=== PATIENT | male | born 1970 | race Caucasian/White ===

== ENCOUNTER 2016-05-14 06:25 | Emergency (ER) | payer BC ==
[~2016-05-14] VITALS: Ht 167.6 cm; Wt 70.3 kg
[~2016-05-14 06:25] MED LIST: LORTAB 5/500 501 TAB PO; ZITHROMAX TRI-500 MG PO
[2016-05-14 06:48] LABS: HEMOGLOBIN 17.6 g/dL (14.1-18.0); LYMPH # 1.5 K/mm3 (0.7-4.5); LYMPH % 27.6 % (10-50)
--- NOTE | 2016-05-14 06:54 | Emergency Room Report ---
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 N Clinical Suspician of Infection? N Mental Status: 1 - Regular (Normal Baseline) Sepsis Risk:Low Sepsis Risk Have you (or family members/close friends) recently traveled outside the [place]? N If Yes, where/when: Have you had exposure to infectious disease within the past month? N TB? Other? 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 No Hyperlipidemia? No CHF? No COPD? No Asthma? No CVA? No Seizures? No Diabetes? No GB Disease: No MRSA? No TB? No Cancer? No Immunization Hx Ped.Immunizations UTD No DT/Tetanus UNKNOWN Surgical Hx Previous Surgery?Y Colon Procedures Social History Smoking Hx Smoker: Current Every Day Smoker Tobacco: Yes Type Cigarettes Packs/day < 1 Pack Alcohol Alcohol: No Drugs none Review of Systems All Other Systems Reviewed and Negative Constitutional denies fever Eyes denies drainage ENT denies: ear pain, epistaxis, throat pain. Respiratory denies cough, denies shortness of breath, denies wheezing Cardiovascular denies chest pain, denies palpitations, denies syncope Gastrointestinal see HPI, abdominal pain, denies diarrhea, nausea, vomiting Genitourinary denies: dysuria, frequency, hesitancy. Musculoskeletal denies back pain, denies joint pain, denies joint swelling, denies neck pain Skin denies rash Psychiatric/Neurological denies headache, denies seizure Physical Exam Vital Signs Vital Signs Date Time Temp Pulse Resp B/P Pulse O2 O2 Flow FiO2 Ox Delivery Rate 05/14 0808 64 20 92 05/14 0729 71 20 137/88 93 05/14 0706 20 05/14 0646 98.2 76 20 158/101 98 - WBC >12,000 or <4,000 or 10% bands? 2 or more SIRS Criteria Met? B/P:137/88 MAP:120 Creatinine >2.0? UA output<0.5ml/kg/hr for 2 hrs? Platelet count >100,000? Lactate >2.0mmol/1? INR >1.2 or PTT > than 60 sec? Evidence of Organ Dysfunction? Provider documented clinical suspician of infection? N Sepsis Criteria Count: 1 Sepsis Risk: Low Sepsis Risk General Appearance no apparent distress Eye Exam - bilateral eye PERRL, bilateral eye EOMI Ear, Nose, Throat normal ENT inspection Neck supple Respiratory Status No: respiratory distress. Lung Sounds bilateral: lungs clear. 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 No Results/Orders Laboratory Tests 05/14/16 0645: Sodium 141, Potassium 4.2, Chloride 104, Carbon Dioxide 29, BUN 14, Creatinine 1.0, Estimated Creat Clear 91, Estimated GFR (MDRD) 80, Glucose 122 H, Calcium 8.9, Total Bilirubin 0.7, AST 81 H, ALT 62, Alkaline Phosphatase 84, Total Protein 7.8, Albumin 3.9, Globulin 3.9 H, Albumin/Globulin Ratio 1.0 L, Amylase 46, Lipase 130, WBC 5.5, RBC 5.47, Hgb 17.6, Hct 53.1 H, MCV 97.1, RDW 13.0, Plt Count 132 L, MPV 6.1 L, Gran % 63.0, Gran # 3.5, Lymphocytes % 27.6, Monocytes % 7.5, Eosinophils % 1.3, Basophils % 0.5, Lymphocytes # 1.5, Monocytes # 0.4, Eosinophils # 0.1, Basophils # 0.0, PUBS MCHC 33.2, MCH 32.2 H Current Medication Orders Sig/Mansoor Start time Last Medication Dose Route Stop Time Status Admin Ceftriaxone Sodium 1 GM ONCE ONE 05/14 814 AC Sodium Chloride 50 ML IV 05/15 843 Sodium Chloride 1,000 ML .Q1H1M 05/14 814 AC 05/14 IV 05/14 Sodium Chloride 10 ML PRN PRN 05/14 814 AC IV 05/15 801 Sodium Chloride 1,000 ML .STK-MED ONE 05/14 802 DC IV Hydromorphone HCl 0 .STK-MED ONE 05/14 702 DC .ROUTE Ondansetron HCl 0 .STK-MED ONE 05/14 702 DC .ROUTE Hydromorphone HCl 1 MG ONCE ONE 05/14 699 DC 05/14 IV 05/14 700 0706 Ondansetron HCl 4 MG ONCE ONE 05/14 699 DC 05/14 IV 05/14 700 0707 Orders Procedure Date/time Status DIET-NOTHING BY MOUTH 05/14 B Active CHEST(2 VIEWS-NOT PORTABLE) 05/14 0730 Active URINALYSIS/COMPLETE 05/[address] ABD/PELVIS REQ 05/14 0646 Complete LIPASE 05/14 0646 Complete CBC WITH AUTO DIFF 05/14 0646 Complete CHEM 12 PROFILE 05/14 0646 Complete AMYLASE 05/14 0646 Complete 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 of ischemic chgs XRAY/CT/US XRAY/CT/US 1 XRAY chest XR interpretation by reviewed by me Xray Results normal/NAD XRAY/CT/US 2 CT abdomen, pelvis CT interpretation by discussed w/radiologist Time results known: 0756 CT Results abnormal (see report) Departure Departure Time of Disposition 818 Disposition DC Home or Self Care(routine) Clinical Impression Primary Impression: CAP (community acquired pneumonia) Secondary Impressions: Ileus Condition STABLE Patient Instructions DI for Atypical Pneumonia Additional Instructions fluids and see pcp for follow up Discharge Counseling Counseled pt/family regarding diagnosis, test results, medications/RX, follow up needs Prescriptions Current Visit Scripts Levofloxacin (Levaquin 500MG) 500 MG PO DAILY #7 TAB PROMETHAZINE HCL (Phenergan 25MG Tab (Geq)) 25 MG PO Q6HP PRN N/V #10 TAB HYDROCODONE/ACETAMINOPHEN ([place] 5-325 Tablet) 1 TAB PO Q6HP PRN pain #7 TAB ED Critical Care Critical Care No Comments pt declined admit at 0822
--- NOTE | 2016-05-14 06:54 | Emergency Room Report ---
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 N Clinical Suspician of Infection? N Mental Status: 1 - Regular (Normal Baseline) Sepsis Risk:Low Sepsis Risk Have you (or family members/close friends) recently traveled outside the [place]? N If Yes, where/when: Have you had exposure to infectious disease within the past month? N TB? Other? 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 No Hyperlipidemia? No CHF? No COPD? No Asthma? No CVA? No Seizures? No Diabetes? No GB Disease: No MRSA? No TB? No Cancer? No Immunization Hx Ped.Immunizations UTD No DT/Tetanus UNKNOWN Surgical Hx Previous Surgery?Y Colon Procedures Social History Smoking Hx Smoker: Current Every Day Smoker Tobacco: Yes Type Cigarettes Packs/day < 1 Pack Alcohol Alcohol: No Drugs none Review of Systems All Other Systems Reviewed and Negative Constitutional denies fever Eyes denies drainage ENT denies: ear pain, epistaxis, throat pain. Respiratory denies cough, denies shortness of breath, denies wheezing Cardiovascular denies chest pain, denies palpitations, denies syncope Gastrointestinal see HPI, abdominal pain, denies diarrhea, nausea, vomiting Genitourinary denies: dysuria, frequency, hesitancy. Musculoskeletal denies back pain, denies joint pain, denies joint swelling, denies neck pain Skin denies rash Psychiatric/Neurological denies headache, denies seizure Physical Exam Vital Signs Vital Signs Date Time Temp Pulse Resp B/P Pulse O2 O2 Flow FiO2 Ox Delivery Rate 05/14 0808 64 20 92 05/14 0729 71 20 137/88 93 05/14 0706 20 05/14 0646 98.2 76 20 158/101 98 - WBC >12,000 or <4,000 or 10% bands? 2 or more SIRS Criteria Met? B/P:137/88 MAP:120 Creatinine >2.0? UA output<0.5ml/kg/hr for 2 hrs? Platelet count >100,000? Lactate >2.0mmol/1? INR >1.2 or PTT > than 60 sec? Evidence of Organ Dysfunction? Provider documented clinical suspician of infection? N Sepsis Criteria Count: 1 Sepsis Risk: Low Sepsis Risk General Appearance no apparent distress Eye Exam - bilateral eye PERRL, bilateral eye EOMI Ear, Nose, Throat normal ENT inspection Neck supple Respiratory Status No: respiratory distress. Lung Sounds bilateral: lungs clear. 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 No Results/Orders Laboratory Tests 05/14/16 0645: Sodium 141, Potassium 4.2, Chloride 104, Carbon Dioxide 29, BUN 14, Creatinine 1.0, Estimated Creat Clear 91, Estimated GFR (MDRD) 80, Glucose 122 H, Calcium 8.9, Total Bilirubin 0.7, AST 81 H, ALT 62, Alkaline Phosphatase 84, Total Protein 7.8, Albumin 3.9, Globulin 3.9 H, Albumin/Globulin Ratio 1.0 L, Amylase 46, Lipase 130, WBC 5.5, RBC 5.47, Hgb 17.6, Hct 53.1 H, MCV 97.1, RDW 13.0, Plt Count 132 L, MPV 6.1 L, Gran % 63.0, Gran # 3.5, Lymphocytes % 27.6, Monocytes % 7.5, Eosinophils % 1.3, Basophils % 0.5, Lymphocytes # 1.5, Monocytes # 0.4, Eosinophils # 0.1, Basophils # 0.0, PUBS MCHC 33.2, MCH 32.2 H Current Medication Orders Sig/Mansoor Start time Last Medication Dose Route Stop Time Status Admin Ceftriaxone Sodium 1 GM ONCE ONE 05/14 814 AC Sodium Chloride 50 ML IV 05/15 843 Sodium Chloride 1,000 ML .Q1H1M 05/14 814 AC 05/14 IV 05/14 Sodium Chloride 10 ML PRN PRN 05/14 814 AC IV 05/15 801 Sodium Chloride 1,000 ML .STK-MED ONE 05/14 802 DC IV Hydromorphone HCl 0 .STK-MED ONE 05/14 702 DC .ROUTE Ondansetron HCl 0 .STK-MED ONE 05/14 702 DC .ROUTE Hydromorphone HCl 1 MG ONCE ONE 05/14 699 DC 05/14 IV 05/14 700 0706 Ondansetron HCl 4 MG ONCE ONE 05/14 699 DC 05/14 IV 05/14 700 0707 Orders Procedure Date/time Status DIET-NOTHING BY MOUTH 05/14 B Active CHEST(2 VIEWS-NOT PORTABLE) 05/14 0730 Active URINALYSIS/COMPLETE 05/[address] ABD/PELVIS REQ 05/14 0646 Complete LIPASE 05/14 0646 Complete CBC WITH AUTO DIFF 05/14 0646 Complete CHEM 12 PROFILE 05/14 0646 Complete AMYLASE 05/14 0646 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 of ischemic chgs XRAY/CT/US XRAY/CT/US 1 XRAY chest XR interpretation by reviewed by me Xray Results normal/NAD XRAY/CT/US 2 CT abdomen, pelvis CT interpretation by discussed w/radiologist Time results known: 0756 CT Results abnormal (see report) Departure Departure Time of Disposition 818 Disposition DC Home or Self Care(routine) Clinical Impression Primary Impression: CAP (community acquired pneumonia) Secondary Impressions: Ileus Condition STABLE Patient Instructions DI for Atypical Pneumonia Additional Instructions fluids and see pcp for follow up Discharge Counseling Counseled pt/family regarding diagnosis, test results, medications/RX, follow up needs Prescriptions Current Visit Scripts Levofloxacin (Levaquin 500MG) 500 MG PO DAILY #7 TAB PROMETHAZINE HCL (Phenergan 25MG Tab (Geq)) 25 MG PO Q6HP PRN N/V #10 TAB HYDROCODONE/ACETAMINOPHEN ([place] 5-325 Tablet) 1 TAB PO Q6HP PRN pain #7 TAB ED Critical Care Critical Care No Comments pt declined admit at 0813
--- NOTE | 2016-05-14 07:29 | RADIOLOGY REPORT PS360 ---
CT ABD PELVIS W/O CONTRAST CLINICAL INDICATION: Mid abdominal pain. Prior abdominal surgery for diverticulitis ABD PAIN ORDERING PHYSICIAN: PATIENT AGE: 45 years COMPARISON: None TECHNIQUE: Axial images obtained with sagittal and coronal reformats. PROCEDURE: Oral Contrast: None IV Contrast: None . FINDINGS: There is patchy area of pneumonia in the left lower lobe. Prior cholecystectomy. No focal liver lesion or biliary dilatation. The spleen, adrenal glands, and pancreas are unremarkable. No renal calculi or hydronephrosis. Unremarkable appendix. No evidence of diverticulitis. Postsurgical changes with anastomosis is present at the rectosigmoid junction. There is minimally distended small bowel loops in the pelvis which are fluid-filled. This involves the distal and terminal ileum extending to the ileocecal valve and may be related to mild ileus/enteritis. No adenopathy or aneurysm. Prostate calcifications are present with mildly prominent prostate There is acute anterior angulation of the mid aspect of the sacrum and may be due to an old fracture or could be developmental. No acute bony anomalies are evident. Small lymph nodes are present in the ankle region bilaterally IMPRESSION: 1. Left lower lobe pneumonia. 2. Possible ileus/enteritis. 3. Unremarkable appendix, no evidence of diverticulitis or obstructing ureteral calculus.. 4. Other nonacute findings as described above
[2016-05-14] MEDS ORDERED: LEVAQUIN500 MG PO (08:24)
[2016-05-14] MEDS ORDERED: PHENERGAN25 M3 PO (08:24)
[2016-05-14] MEDS ORDERED: NORCO 325 MG-51 TAB PO (08:24)
[2016-05-14 08:29] VITALS: BP 156/111
--- NOTE | 2016-05-14 09:11 | RADIOLOGY REPORT PS360 ---
CHEST(2 VIEWS-NOT PORTABLE) HISTORY: Cough and shortness of air sob ORDERING PHYSICIAN: Marilia Resendez MD PATIENT AGE: 45 years COMPARISON: 01/20/2008 FINDINGS: The cardiomediastinal silhouette and pulmonary vascularity are within normal limits. The lungs are clear without infiltrates, suspicious nodules, or pleural effusions. There are old left-sided rib fractures. IMPRESSION: No change with no acute finding
== END 2016-05-14 08:56 | disposition home or self-care (01) ==
LOC: ER 06:25
PROVIDERS: Emergency Medicine
DX: K56.7 Ileus, unspecified (principal)
CPT/HCPCS: J2405